=== PATIENT | female | born 1955 | race Caucasian/White ===

== ENCOUNTER 2016-12-26 13:22 | Emergency (ER) | payer BC, OTHER ==
[2016-12-26 13:22] VITALS: BMI 30.7
[2016-12-26 13:43] VITALS: BP 147/78; PULSE 64; RESP 20; TEMP 98.3; O2SAT 99
--- NOTE | 2016-12-26 15:51 | C.PDOC ---
History Of Present Illness 61 y/o female presents to ED with complaints of tenderness to left lateral rib. 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 Patient describes pain as localized worse with movement and better when holding still. Patient took 1000mg Tylenol yesterday that resolved pain and today 400mg Motrin that resolved pain. No other complaints at this time. Time Seen by Provider: 12/26/16 15:44 Chief Complaint (Nursing): Chest Pain History Per: Patient History/Exam Limitations: no limitations Onset/Duration Of Symptoms: Days Current Symptoms Are (Timing): Still Present Past Medical History Reviewed: Historical Data, Nursing Documentation, Vital Signs Vital Signs: Last Vital Signs Temp 98.3 F 12/26/16 13:39 Pulse 64 12/26/16 13:39 Resp 20 12/26/16 13:39 BP 147/78 12/26/16 13:39 Pulse Ox 99 12/26/16 15:51 - Medical History PMH: Anxiety, HTN, Hypercholesterolemia Surgical History: No Surg Hx - [facility] Procedures INJECT/INFUSE ELECTROLYT (12/30/14) INJECT/INFUSE NEC (12/30/14) Family History: States: No Known Family Hx - Social History Hx Tobacco Use: No Hx Alcohol Use: Yes Hx Substance Use: No - Immunization History Hx Tetanus Toxoid Vaccination: No Hx Influenza Vaccination: Yes Hx Pneumococcal Vaccination: Yes Review Of Systems Except As Marked, All Systems Reviewed And Found Negative. Constitutional: Negative for: Fever, Chills Cardiovascular: Negative for: Chest Pain Respiratory: Negative for: Shortness of Breath Gastrointestinal: Negative for: Nausea, Vomiting Skin: Negative for: Rash Physical Exam - Physical Exam Appears: Non-toxic, No Acute Distress Skin: Normal Color, Warm, Dry, No Rash Head: Atraumatic, Normacephalic Eye(s): bilateral: Normal Inspection Oral Mucosa: Moist Neck: Normal ROM, Supple Lymphatic: Other (Mild tender to left lateral rib and at mid axillary line T5) Chest: Symmetrical Cardiovascular: Rhythm Regular, No Murmur Respiratory: Normal Breath Sounds, No Rales, No Rhonchi, No Wheezing Gastrointestinal/Abdominal: Soft, No Tenderness, No Guarding, No Rebound Extremity: Normal ROM, Capillary Refill (<2 seconds) Neurological/Psych: Oriented x3, Normal Motor, Normal Sensation ED Course And Treatment O2 Sat by Pulse Oximetry: 99 (RA) Pulse Ox Interpretation: Normal Medical Decision Making Medical Decision Making: L rib costochondritis related to exertionl efforts @ work @ [employer]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 Disposition Doctor Will See Patient In The: Office Counseled Patient/Family Regarding: Studies Performed, Diagnosis - Disposition Referrals: [facility] [Outside] [facility] [Outside] Disposition: HOME/ ROUTINE Disposition Time: 15:50 Condition: GOOD Additional Instructions: ice packs 1/2 per hour, nothing hot Motrin 400-600 mg every 6hrs as needed Tylenol 1000 mg every 6 hours as needed Normal work routine Instructions: Costochondritis (ED) Forms: [facility] (Turkish), Work Excuse - Clinical Impression Clinical Impression: Chest wall discomfort - Scribe Statement The provider has reviewed the documentation as recorded by the Scribturner Guardado All medical record entries made by the Marinaibturner were at my direction and personally dictated by me. I have reviewed the chart and agree that the record accurately reflects my personal performance of the history, physical exam, medical decision making, and the department course for this patient. I have also personally directed, reviewed, and agree with the discharge instructions and disposition.
--- NOTE | 2016-12-27 14:54 | CARD ---
APPROVED REPORT EKG Measurement Heart [id number] <Conclusion> Sinus bradycardia Otherwise normal ECG
== END 2016-12-26 16:25 | disposition home or self-care (01) ==
LOC: C.ER 13:22
DX: R07.89 Other chest pain (principal); I10 Essential (primary) hypertension

== ENCOUNTER 2017-02-20 15:58 | Emergency (ER) | payer OTHER ==
[2017-02-20 15:58] VITALS: BMI 30.7
[2017-02-20 16:07] VITALS: RESP 18; O2SAT 100
[2017-02-20] MEDS ORDERED: Lactated Ringer's 1,000 ML IV STA (16:59)
[2017-02-20] MEDS ORDERED: Lidocaine 116 MG in Sodium Chloride 0.9% 100 ML IV STA (16:59)
--- NOTE | 2017-02-20 16:59 | C.PDOC ---
History Of Present Illness 61 year old female presents to the ED with complaints of intermittent left flank pain for three days that radiates to LLQ. Patient reports relief with motrin however the pain "keeps recurring." Patient states last use of motrin was this morning. Patient denies history of renal stone, UTI symptoms, urinary urgency, or other associated symptoms. L FLANK/LLQ PAIN X 3 DAYS. INTERMIT, RADIATION L LQ. RELIEF W MOTRIN BUT "KEEPS RECURRING". NO UTI SX, URINARY URGENCY, OTHER ASSOC SX. DENIES PRIOR HO RENAL STONE. LAST MOTRIN THIS MORNING EXAM MILD DIST NO CVAT ABD NEG Time Seen by Provider: 02/20/17 16:47 Chief Complaint (Nursing): Back Pain History Per: Patient History/Exam Limitations: no limitations Onset/Duration Of Symptoms: Days (3 days ), Intermittent Episodes Current Symptoms Are (Timing): Still Present Location Of Pain/Discomfort: LLQ Radiation Of Pain To:: Flank (left flank) Quality Of Discomfort: "Pain" Associated Symptoms: denies: Fever, Chills, Nausea, Vomiting Exacerbating Factors: None Alleviating Factors: OTC Meds (Motrin ) Recent travel outside of the [place]: No Abnormal Vaginal Bleeding: No Past Medical History Reviewed: Historical Data, Nursing Documentation, Vital Signs Vital Signs: Last Vital Signs Temp 97.6 F 02/20/17 16:04 Pulse 74 02/20/17 17:58 Resp 18 02/20/17 17:58 BP 146/73 02/20/17 17:58 Pulse Ox 100 02/20/17 17:28 - Medical History PMH: Anxiety, HTN, Hypercholesterolemia Denies: Chronic Kidney Disease - [facility] Procedures INJECT/INFUSE ELECTROLYT (12/30/14) INJECT/INFUSE NEC (12/30/14) Family History: States: Unknown Family Hx - Social History Hx Tobacco Use: No Hx Alcohol Use: Yes Hx Substance Use: No - Immunization History Hx Tetanus Toxoid Vaccination: No Hx Influenza Vaccination: Yes Hx Pneumococcal Vaccination: Yes Review Of Systems Constitutional: Negative for: Fever, Chills Cardiovascular: Negative for: Chest Pain, Palpitations Respiratory: Negative for: Cough, Shortness of Breath Gastrointestinal: Positive for: Abdominal Pain (Left flank and LLQ ). Negative for: Nausea, Vomiting, Diarrhea Genitourinary: Negative for: Dysuria, Frequency, Incontinence, Hematuria, Vaginal Discharge, Vaginal Bleeding Physical Exam - Physical Exam Appears: Non-toxic, In Acute Distress (appears to be in mild distress) Skin: Warm, Dry, No Rash Head: Atraumatic, Normacephalic, No Tenderness Eye(s): bilateral: Normal Inspection, PERRL, EOMI Oral Mucosa: Moist Neck: Supple Chest: Symmetrical, No Deformity Cardiovascular: Rhythm Regular, No Murmur Respiratory: No Rales, No Rhonchi, No Wheezing, Other (clear to auscultation bilaterally ) Gastrointestinal/Abdominal: Soft, No Tenderness, No Distention, No Guarding, No Rebound Back: No CVA Tenderness Extremity: Normal ROM, No Tenderness Neurological/Psych: Oriented x3 ED Course And Treatment - Laboratory Results Result Diagrams: 02/20/17 17:08 02/20/17 17:08 O2 Sat by Pulse Oximetry: 100 (RA) Pulse Ox Interpretation: Normal - CT Scan/US Abdomen & Pelvis CT Other Rad Studies (CT/US): Read By Radiologist, Radiology Report Reviewed Progress Note: Abdomen & Pelvis CT, blood work, and labs were rodered. Patient was given Tylenol, Toradol, Zofran, Flomax, lidocaine, and Lacteated Ringers IV. Progress - Re-Evaluation Re-evaluation Note: 02/20/17 18:25 FEELS BETTER NO S/S ACUTE ABD. DC ABX, ADVISED FU GI - Data Reviewed Data Reviewed: Lab, Diagnostic imaging, Old records Disposition Counseled Patient/Family Regarding: Studies Performed, Diagnosis, Need For Followup, Rx Given - Disposition Referrals: Mateus Yoo MD [Staff Provider] - Disposition: HOME/ ROUTINE Disposition Time: 18:26 Condition: IMPROVED Prescriptions: Ciprofloxacin [Cipro] 1 tab PO BID #14 tab Dicyclomine [Bentyl] 20 mg PO TID PRN #12 tab PRN Reason: Pain Metoclopramide [Reglan] 1 tab PO TID PRN #25 tab PRN Reason: Nausea/Vomiting Metronidazole [Flagyl] 500 mg PO BID #14 tab Instructions: Enteritis (ED) Forms: [facility] (Citizen Of [place]), Work Excuse - Clinical Impression Clinical Impression: Enteritis - Scribe Statement The provider has reviewed the documentation as recorded by the Scribe Merlyn Contreras All medical record entries made by the Scribe were at my direction and personally dictated by me. I have reviewed the chart and agree that the record accurately reflects my personal performance of the history, physical exam, medical decision making, and the department course for this patient. I have also personally directed, reviewed, and agree with the discharge instructions and disposition.
[2017-02-20 17:15] LABS: BASO # 0.1 K/uL (0.0-0.2); BASO % 1.1 % (0.0-2.0); EOS # 0.4 K/uL (0.0-0.7); HEMATOCRIT 37.2 % (34.0-47.0); LYMPH % 46.5 % (20.0-40.0); MEAN CELL VOLUME 85.3 fL (81.0-99.0); MEAN CORPUSCULAR HEMOGLOBIN 28.1 pg (27.0-31.0); MEAN PLATELET VOLUME 8.9 fL (7.2-11.7); MONO # 0.6 K/uL (0.0-0.8); MONO % 9.2 % (0.0-10.0); NRBC % 0.1 % (0.0-2.0); RED CELL DISTRIBUTION WIDTH 14.3 % (11.5-14.5); WHITE BLOOD COUNT 6.4 K/uL (4.8-10.8)
[2017-02-20 17:18] LABS: RBC URINE 2 /hpf (0-3); URINE BILIRUBIN NEGATIVE (NEGATIVE); URINE BLOOD NEGATIVE (NEGATIVE); URINE COLOR Yellow (YELLOW); URINE GLUCOSE (UA) NORMAL (Normal); URINE KETONE NEGATIVE (NEGATIVE); URINE LEUKOCYTE ESTERASE NEG Leu/uL (Negative); URINE PROTEIN NEGATIVE (NEGATIVE); URINE UROBILINOGEN NORMAL mg/dL (0.2-1.0); WBC URINE 4 /hpf (0-5)
[2017-02-20] MEDS ORDERED: Lactated Ringer's 1,000 ML ONE (17:25)
[2017-02-20 17:30] LABS: CHLORIDE 100 mmol/L (98-107)
[2017-02-20 17:31] LABS: POTASSIUM 3.5 mmol/L (3.6-5.2); SODIUM 138 mmol/L (132-148)
[2017-02-20 17:33] LABS: GFR AFRICAN-AMERICAN > 60
[2017-02-20 17:34] LABS: ALB/GLOB RATIO 1.7 (1.0-2.1); ALKALINE PHOSPHATASE 62 U/L (38-126); ALT/SGPT 48 U/L (9-52); AST/SGOT 35 U/L (14-36); BILIRUBIN,TOTAL 0.6 mg/dL (0.2-1.3); BLOOD UREA NITROGEN 17 mg/dL (7-17); CALCIUM 8.7 mg/dl (8.6-10.4); CARBON DIOXIDE 29 mmol/L (22-30); GLUCOSE,RANDOM 81 mg/dL (65-105); TOTAL PROTEIN 6.9 g/dL (6.3-8.3)
[2017-02-20] MEDS ORDERED: Iodixanol 320 MG/ML 100 ML BOTTLE IV ONE (17:44)
[2017-02-20 17:59] VITALS: BP 146/73; PULSE 74
--- NOTE | 2017-02-20 18:24 | CT ---
PROCEDURE: CT Abdomen and Pelvis with and without intravenous contrast HISTORY: L FLANK/LLQ PAIN COMPARISON: CT abdomen and pelvis performed 04/29/14 TECHNIQUE: Axial images of the abdomen were obtained in the pre contrast, portal venous and delayed phases of enhancement. Coronal and sagittal reformats were generated and reviewed. Contrast dose: 100 cc Visipaque 320 Radiation dose: Total exam DLP = 1512.72 mGy-cm. This CT exam was performed using one or more of the following dose reduction techniques: Automated exposure control, adjustment of the mA and/or kV according to patient size, and/or use of iterative reconstruction technique. FINDINGS: LOWER THORAX: No visible consolidation, pleural effusion, or pneumothorax. LIVER: 6 mm hepatic dome hypodensity and 3 mm right hepatic lobe hypodensity, too small to adequately characterize ; statistically likely cysts or hemangiomas. GALLBLADDER AND BILE DUCTS: Unremarkable. PANCREAS: Unremarkable. SPLEEN: Unremarkable. ADRENALS: Unremarkable. KIDNEYS AND URETERS: The kidneys enhance symmetrically. No hydronephrosis or obstructing calculus identified. VASCULATURE: No aortic aneurysm. BOWEL: Ingested debris within the stomach limits evaluation. Lack of oral contrast limits evaluation for bowel pathology. Bowel loops appear within normal limits of caliber without evidence of obstruction. Small bowel wall thickening. APPENDIX: The appendix appears within normal limits of caliber. No secondary signs of acute appendicitis. PERITONEUM: No significant free fluid. No definite free air. LYMPH NODES: No bulky adenopathy identified. BLADDER: Under distended urinary bladder limits evaluation. REPRODUCTIVE: The uterus is present. BONES: Degenerative changes of the spine. OTHER FINDINGS: None. IMPRESSION: Extensive small bowel wall thickening may be secondary to enteritis. Correlate clinically. 6 mm hepatic dome hypodensity and 3 mm right hepatic lobe hypodensity, too small to adequately characterize ; statistically likely cysts or hemangiomas.
[2017-02-20 18:29] VITALS: TEMP 98
== END 2017-02-20 18:45 | disposition home or self-care (01) ==
LOC: C.ER 15:58
DX: K52.9 Noninfective gastroenteritis and colitis, unspecified (principal); I10 Essential (primary) hypertension
CPT/HCPCS: 74178; 80053; 81001; 83690; 85025; 96361; 96374; 99284; J1885; J2001; J7120; Q9967

== ENCOUNTER 2017-10-25 15:54 | Emergency (ER) | payer BC, OTHER ==
[2017-10-25 15:54] VITALS: BMI 30.7
[2017-10-25 16:09] VITALS: BP 131/70; PULSE 66; RESP 18; TEMP 98; O2SAT 100
--- NOTE | 2017-10-25 16:24 | C.PDOC ---
History Of Present Illness 62-year-old female with a past medical history of hypertension and hypercholesterolemia presents to the ED with complaints of right knee and leg pain. She states pain starts at right upper leg radiating down to the right ankle, onset yesterday. Patient also notes bilateral swelling to the lower legs , right greater than left. She denies any fall or trauma. Patient also denies history of arthritis. 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 Otherwise she denies any numbness, tingling, or focal weakness. Time Seen by Provider: 10/25/17 16:12 Chief Complaint (Nursing): Lower Extremity Problem/Injury History Per: Patient History/Exam Limitations: no limitations Onset/Duration Of Symptoms: Days (x2) Current Symptoms Are (Timing): Still Present Past Medical History Reviewed: Historical Data, Nursing Documentation, Vital Signs Vital Signs: Last Vital Signs Temp 98 F 10/25/17 16:07 Pulse 66 10/25/17 16:07 Resp 18 10/25/17 16:07 BP 131/70 10/25/17 16:07 Pulse Ox 100 10/25/17 17:13 - Medical History PMH: Anxiety, HTN, Hypercholesterolemia Denies: Chronic Kidney Disease Surgical History: - [facility] Procedures INJECT/INFUSE ELECTROLYT (12/30/14) INJECT/INFUSE NEC (12/30/14) Family History: States: Unknown Family Hx - Social History Hx Tobacco Use: No Hx Alcohol Use: Yes Hx Substance Use: No - Immunization History Hx Tetanus Toxoid Vaccination: No Hx Influenza Vaccination: Yes Hx Pneumococcal Vaccination: Yes Review Of Systems Except As Marked, All Systems Reviewed And Found Negative. Musculoskeletal: Positive for: Leg Pain (right leg pain from upper thigh down to ankle), Other (bilateral lower leg swelling) Skin: Negative for: Lesions, Bruising Neurological: Negative for: Weakness, Numbness, Incoordination Physical Exam - Physical Exam Appears: Non-toxic, No Acute Distress Skin: Warm, Dry, No Rash Head: Atraumatic, Normacephalic Eye(s): bilateral: Normal Inspection Oral Mucosa: Moist Neck: Normal ROM Chest: Symmetrical Extremity: Normal ROM (with no limitation to flexion of right knee), Tenderness (to the right knee), Pedal Edema (Mild pedal edema bilaterally), No Calf Tenderness, No Deformity, Swelling (Mild swelling to the right knee) Pulses: Left Dorsalis Pedis: Normal, Right Dorsalis Pedis: Normal Neurological/Psych: Oriented x3, Normal Speech, Normal Motor, Normal Sensation Gait: Steady ED Course And Treatment O2 Sat by Pulse Oximetry: 100 (RA) Pulse Ox Interpretation: Normal - Other Rad X-Ray Hip/Pelvis X-Ray: Interpreted by Me, Viewed By Me Interpretation: No acute fracture or dislocation. X-Ray Right Knee X-Ray: Interpreted by Me, Viewed By Me Interpretation: No acute fracture or dislocation. Medical Decision Making Medical Decision Making: Impression: Atraumatic right leg pain Time: 16:20 Initial Plan: --Motrin 600 mg PO --X-Ray Right Knee --X-Ray Right Hip w/ Pelvis Progress, Reassess and Dispo: Patient reports she feels better. Discussed negative x-ray results with patient. Patient expresses understanding. Counseling was provided regarding the diagnosis and prognosis. All questions answered and there is agreement with the plan to discharge home with instructions. Patient is stable for discharge. Advised to return if symptoms persist or worsen. Disposition Counseled Patient/Family Regarding: Studies Performed, Diagnosis, Need For Followup, Rx Given - Disposition Referrals: [facility] [Outside] Disposition: HOME/ ROUTINE Disposition Time: 17:01 Condition: GOOD Additional Instructions: Follow up with your primary medical doctor or clinic in 2-5 days for further evaluation. Take medications as prescribed. Return to the emergency department at any time if symptoms persist or worsen. 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 - Scribe Statement The provider has reviewed the documentation as recorded by the Scribe (Alice Randolph) All medical record entries made by the Scribe were at my direction and personally dictated by me. I have reviewed the chart and agree that the record accurately reflects my personal performance of the history, physical exam, medical decision making, and the department course for this patient. I have also personally directed, reviewed, and agree with the discharge instructions and disposition.
--- NOTE | 2017-10-25 17:39 | RAD ---
Date of service: 10/25/2017 PROCEDURE: RIGHT HIP WITH PELVIS RADIOGRAPHS HISTORY: pain to hip and leg, no trauma COMPARISON: Abdomen pelvis CT examination 02/20/2017. TECHNIQUE: AP views of the right hip and pelvis been submitted with frog-leg lateral view right hip. FINDINGS: No acute fracture of the pelvic ring is appreciated as imaged with the pubic symphysis appearing intact. This no fracture dislocation involving the right hip joint either. degenerative changes are seen at the sacroiliac and hip joints symmetrically with limited osteophyte development is seen at the right acetabulum laterally. No destructive bony lesion identified. Local soft tissues are unremarkable. IMPRESSION: Degenerative changes bilateral sacroiliac and hip joints without fracture or dislocation right hip joint or the pelvic ring as discussed above.
--- NOTE | 2017-10-25 17:41 | RAD ---
Date of service: 10/25/2017 PROCEDURE: Right Knee Radiographs. HISTORY: pain right knee COMPARISON: None. FINDINGS: BONES: No acute fracture or destructive bony lesion identified. JOINTS: Joint space narrowing and articular cortical sclerosis as well as osteophyte development are identified at the patellofemoral, medial and lateral femorotibial compartments compatible moderately advanced osteoarthritis. No subluxation or dislocation. Degenerative ossification of the insertion of the quadriceps tendon is seen at the patella. JOINT EFFUSION: A small suprapatellar bursa effusion is present. OTHER FINDINGS: None. IMPRESSION: No acute fracture or dislocation right knee. Advanced osteoarthritis is identified at the right knee as per above. Small right suprapatellar bursa effusion identified.
== END 2017-10-25 17:26 | disposition home or self-care (01) ==
LOC: C.ER 15:54
DX: M25.561 Pain in right knee (principal); M79.604 Pain in right leg

== ENCOUNTER 2018-09-05 02:45 | Emergency (ER) | payer BC, OTHER ==
[2018-09-05 02:46] VITALS: BMI 31.7
[2018-09-05 03:04] VITALS: RESP 18; O2SAT 99
[2018-09-05] MEDS ORDERED: Naproxen 550 mg Tab PO STA (03:19)
[2018-09-05] MEDS ORDERED: Naproxen 550 mg Tab PO ONE (03:43)
--- NOTE | 2018-09-05 04:06 | C.PDOC ---
History Of Present Illness 63 year old female presents with neck pain and left sided upper back pain and lower back pain started after she fell 6 days ago. Patient slipped and fell landing onto her left back. Denies LOC, chest pain, palpitations, or SOB. Time Seen by Provider: 09/05/18 02:53 Chief Complaint (Nursing): Back Pain History Per: Patient History/Exam Limitations: no limitations Onset/Duration Of Symptoms: Days (6) Current Symptoms Are (Timing): Still Present Quality Of Discomfort: Unable To Describe Previous Symptoms: Prior Injury Associated Symptoms: None Recent travel outside of the [place]: No Past Medical History Reviewed: Historical Data, Nursing Documentation, Vital Signs Vital Signs: Last Vital Signs Temp 97.9 F 09/05/18 02:56 Pulse 68 09/05/18 02:56 Resp 18 09/05/18 02:56 BP 139/80 09/05/18 02:56 Pulse Ox 99 09/05/18 02:56 Primary Care Provider: Non [facility] Provider, - Medical History PMH: Anxiety, HTN, Hypercholesterolemia Denies: Chronic Kidney Disease Surgical History: - [facility] Procedures INJECT/INFUSE ELECTROLYT (12/30/14) INJECT/INFUSE NEC (12/30/14) Family History: States: Unknown Family Hx - Social History Hx Tobacco Use: No Hx Alcohol Use: Yes Hx Substance Use: No - Immunization History Hx Tetanus Toxoid Vaccination: No Hx Influenza Vaccination: Yes Hx Pneumococcal Vaccination: Yes Review Of Systems Except As Marked, All Systems Reviewed And Found Negative. Musculoskeletal: Positive for: Neck Pain, Back Pain Physical Exam - Physical Exam Appears: Non-toxic, Other (In mild pain) Skin: Normal Color, Warm Head: Atraumatic, Normacephalic Eye(s): bilateral: Normal Inspection Oral Mucosa: Moist Neck: Normal, No Midline Cervical Tenderness, No Paracervical Tenderness, Supple Chest: Tenderness (Left lateral rib area around rib 5-6), Other (No crepitus) Cardiovascular: Rhythm Regular Respiratory: Normal Breath Sounds, No Rales, No Rhonchi, No Wheezing Gastrointestinal/Abdominal: Soft, No Tenderness Back: Other (Tenderness to palpation of left lateral thoracic spine around t5-6. No lumbar tenderness) Extremity: Normal ROM (x4) Neurological/Psych: Oriented x3, Normal Speech ED Course And Treatment O2 Sat by Pulse Oximetry: 99 (Room air) Pulse Ox Interpretation: Normal - Radiology CXR: Interpreted by Me, Viewed By Me CXR Interpretation: Yes: Fracture (left 6th rib) - Other Rad LS spine x-ray X-Ray: Interpreted by Me, Viewed By Me Interpretation: No acute fracture or dislocation Cervical spine x-ray X-Ray: Interpreted by Me, Viewed By Me Interpretation: No acute fracture or dislocation Disposition Counseled Patient/Family Regarding: Studies Performed, Diagnosis, Need For Followup, Rx Given - Disposition Referrals: [facility] [Outside] Disposition: HOME/ ROUTINE Disposition Time: 04:05 Condition: STABLE Additional Instructions: FOLLOW UP WITH YOUR DOCTOR/CLINIC IN 1-2 DAYS USE MEDICATION NEEDED FOR PAIN RETURN TO ER IF SYMPTOMS WORSEN Prescriptions: Naproxen [Naprosyn] 1 tab PO BID PRN #25 tab PRN Reason: Pain Instructions: Rib Fracture (DC) Forms: [employer] [facility] (Amharic), Work Excuse Print Language: ARMENIAN - POA Present On Arrival: Falls Or Trauma - Clinical Impression Clinical Impression: Left rib fracture - Scribe Statement The provider has reviewed the documentation as recorded by the Scribturner Chawla All medical record entries made by the Scribe were at my direction and personally dictated by me. I have reviewed the chart and agree that the record accurately reflects my personal performance of the history, physical exam, medical decision making, and the department course for this patient. I have also personally directed, reviewed, and agree with the discharge instructions and disposition.
[2018-09-05 04:17] VITALS: BP 128/79; PULSE 78; TEMP 98.1
--- NOTE | 2018-09-05 13:16 | RAD ---
Date of service: 09/05/2018 PROCEDURE: Cervical Spine Radiographs. HISTORY: Posttraumatic neck pain COMPARISON: None available. TECHNIQUE: 3 views obtained. FINDINGS: BONES: Alignment maintained. No fracture. Dens Intact. DISC SPACES: Normal. SOFT TISSUES: Normal. No prevertebral soft tissue swelling. OTHER FINDINGS: None. IMPRESSION: No acute findings related to/ accounting for the clinical presentation.
--- NOTE | 2018-09-05 13:48 | RAD ---
Date of service: 09/05/2018 PROCEDURE: Radiographs of the Chest and Left Ribs. HISTORY: Left sided rib/back pain after fall COMPARISON: 01/25/2016. TECHNIQUE: 4 views obtained. FINDINGS: LEFT RIBS: There is an acute/subacute nondisplaced fracture in the left posterior 7th rib. LUNGS: Clear. PLEURA: No pneumothorax or pleural fluid. CARDIOVASCULAR: Normal cardiac size. No pulmonary vascular congestion. There are aortic atherosclerotic calcification present OTHER FINDINGS: None. IMPRESSION: Acute/subacute nondisplaced fracture in the left posterior 7th rib. Clear lungs. No pneumothorax.
--- NOTE | 2018-09-05 13:49 | RAD ---
Date of service: 09/05/2018 PROCEDURE: Radiographs of the Lumbar Spine. HISTORY: low back pain after fall COMPARISON: No prior. TECHNIQUE: 3 views obtained. FINDINGS: BONES: There is normal alignment of the lumbar vertebral bodies. There is normal lumbar lordosis. There is no acute fracture or spondylolysis. Bone mineralization is normal.. DISC SPACES: There is multilevel degenerative disc disease with anterior osteophytes, reduced disc heights and multilevel facet arthropathy, worse at L5-S1.. OTHER FINDINGS: There are no pathologic soft tissue calcifications. There is mild degenerative osteoarthrosis in the sacroiliac joints. IMPRESSION: No acute fracture or spondylolysis.
== END 2018-09-05 04:17 | disposition home or self-care (01) ==
LOC: C.ER 02:45
DX: S22.32XA Fracture of one rib, left side, initial encounter for closed fracture (principal); W01.0XXA Fall on same level from slipping, tripping and stumbling without subsequent striking against object, initial encounter